=== PATIENT | female | born 1990 | race Native Hawaiian/Other Pacific Islander ===

== ENCOUNTER 2017-04-04 14:11 | Inpatient (IN) | payer OTHER ==
[~2017-04-04] VITALS: Ht 167.6 cm; Wt 104.3 kg
[~2017-04-04 14:11] MED LIST: HYDACE5 PO; METERG.2 PO
[2017-04-04] MEDS ORDERED: EXPECTA PRENAT1 EACH (15:06)
[2017-04-04 15:13] LABS: BASOPHILS ABSOLUTE AUTO 0.01 K/mm3 (0.00-0.23); BASOPHILS PERCENT AUTO 0 % (0-2); EOSINOPHILS PERCENT AUTO 0 % (0-6); Hemoglobin 13.2 g/dL (11.5-16.0); IMMATURE GRAN ABSOLUTE AUTO 0.03 K/mm3 (0.00-0.10); IMMATURE GRAN PERCENT AUTO 0 % (0-1); LYMPHOCYTES ABSOLUTE AUTO 1.91 K/mm3 (0.84-5.20); LYMPHOCYTES PERCENT AUTO 18 % (21-46); MONOCYTES ABSOLUTE AUTO 0.61 K/mm3 (0.16-1.47); MONOCYTES PERCENT AUTO 6 % (4-13); Mean Corpuscular HGB 28.1 pg (26.0-34.0); Mean Corpuscular HGB Conc 33.8 g/dL (31.5-36.5); Mean Corpuscular Volume 83 fL (80-100); Mean Platelet Volume 9.6 fL (9.1-12.4); NEUTROPHILS ABSOLUTE AUTO 8.35 K/mm3 (1.96-9.15); NEUTROPHILS PERCENT AUTO 77 % (41-73); Platelet Count 284 K/mm3 (150-400); RDW Coefficient Variation 13.7 % (11.7-14.2); RDW Standard Deviation 41.6 fL (35.1-46.3); White Blood Cell Count 10.91 K/mm3 (4.00-11.30)
[2017-04-05 05:33] LABS: Hematocrit 34.8 % (33.0-51.0); Hemoglobin 11.2 g/dL (11.5-16.0); Mean Corpuscular HGB 27.5 pg (26.0-34.0); Mean Corpuscular HGB Conc 32.2 g/dL (31.5-36.5); Mean Corpuscular Volume 86 fL (80-100); Mean Platelet Volume 9.5 fL (9.1-12.4); Platelet Count 258 K/mm3 (150-400); RDW Standard Deviation 43.4 fL (35.1-46.3); Red Blood Cell Count 4.07 M/mm3 (3.80-5.20); White Blood Cell Count 15.58 K/mm3 (4.00-11.30)
== END 2017-04-06 14:30 | disposition home or self-care (01) | DRG 775 ==
LOC: OBS 14:11 → BC 14:39
PROVIDERS: Obstetrics & Gynecology
PROC: 10E0XZZ Delivery of Products of Conception, External Approach (ICD-10-PCS; principal; 2017-04-04)
PROC: 0HQ9XZZ Repair Perineum Skin, External Approach (ICD-10-PCS; 2017-04-04)
PROC: 10907ZC Drainage of Amniotic Fluid, Therapeutic from Products of Conception, Via Natural or Artificial Opening (ICD-10-PCS; 2017-04-04)
DX: O70.0 First degree perineal laceration during delivery (principal); Z37.0 Single live birth; Z3A.40 40 weeks gestation of pregnancy
CPT/HCPCS: 36415; 51702; 81003; 85025; 85027; 90707; J1885; J2405; J2590; J3010; J7120

== ENCOUNTER → 2019-03-24 | Outpatient (CLI) | payer OTHER ==
[~2019-03-24] MED LIST changes: +EXPECTA PRENAT1 EACH
== END | disposition home or self-care (01) ==
LOC: LAB SHORT 12:50 → LAB EV 12:50
DX: N39.0 Urinary tract infection, site not specified (principal)
CPT/HCPCS: 87077; 87086; 87186

== ENCOUNTER 2019-12-25 06:38 | Day surgery (SDC) | payer OTHER ==
[~2019-12-25] VITALS: Ht 167.6 cm; Wt 66.4 kg
[~2019-12-25 06:38] MED LIST changes: +OMEP20ER PO; +ONDA4 PO; +[UNRECOGNIZED DRUG - OTHER] PO
--- NOTE | 2019-12-25 11:40 | NUR ---
Discharge instructions reviewed with patient. Patient verbalizes understanding. Copy given to patient to take home. Dressing to procedure site clean, dry, intact with no visible drainage, swelling, erythema or bruising noted. X4 insertion sites stable. Up to get self dressed and experience nausea, patient laid back down. Skin pale and BP taken with lower BP noted. Instructed to rest and will continue to monitor before discharge home. Gave RX to father to get RX filled.
--- NOTE | 2019-12-25 13:15 | NUR ---
AMUBUATED IN DEPARTMENT AND TOLERATED WELL. NO NAUSEA OR LIGHTHEADEDNESS. C/O OF LEFT REFERRED GAS PAIN. BACK TO BED WITH WARM BLANKET PLACED TO SHOULDER AREA. AWAIT FOR RIDE FOR DISCHARGE.
--- NOTE | 2019-12-25 13:53 | NUR ---
Patient up to Ambulate independently. Gait steady. Patient States Post-Procedure ride home has been arranged. Discharged via wheelchair to private car for ride home.
== END 2019-12-25 13:45 | disposition home or self-care (01) ==
LOC: ORSCMMR 06:38 → ORD 07:30 → ORSCMMR 08:15
PROVIDERS: Surgery
PROC: 0FT44ZZ Resection of Gallbladder, Percutaneous Endoscopic Approach (ICD-10-PCS; principal; 2019-12-25 08:15)
DX: K80.10 Calculus of gallbladder with chronic cholecystitis without obstruction (principal)
CPT/HCPCS: 88304; A9270-GY; C1729; J0690; J1100; J1885; J2250; J2405; J2704; J2765; J3010; J7030; J7120

== ENCOUNTER 2020-07-11 20:06 | Emergency (ER) | payer OTHER ==
[~2020-07-11] VITALS: Ht 167.6 cm; Wt 63.5 kg
[2020-07-11 20:45] LABS: BASOPHILS ABSOLUTE AUTO 0.03 K/mm3 (0.00-0.23); BASOPHILS PERCENT AUTO 0 % (0-2); EOSINOPHILS ABSOLUTE AUTO 0.01 K/mm3 (0.00-0.68); EOSINOPHILS PERCENT AUTO 0 % (0-6); Hemoglobin 14.9 g/dL (11.5-16.0); IMMATURE GRAN ABSOLUTE AUTO 0.02 K/mm3 (0.00-0.10); IMMATURE GRAN PERCENT AUTO 0 % (0-1); LYMPHOCYTES ABSOLUTE AUTO 1.83 K/mm3 (0.84-5.20); LYMPHOCYTES PERCENT AUTO 17 % (21-46); MONOCYTES ABSOLUTE AUTO 0.67 K/mm3 (0.16-1.47); MONOCYTES PERCENT AUTO 6 % (4-13); Mean Corpuscular HGB 29.4 pg (26.0-34.0); Mean Corpuscular HGB Conc 34.7 g/dL (31.5-36.5); Mean Corpuscular Volume 85 fL (80-100); Mean Platelet Volume 9.4 fL (9.1-12.4); NEUTROPHILS ABSOLUTE AUTO 8.15 K/mm3 (1.96-9.15); NEUTROPHILS PERCENT AUTO 76 % (41-73); Platelet Count 337 K/mm3 (150-400); RDW Standard Deviation 37.1 fL (35.1-46.3); Red Blood Cell Count 5.07 M/mm3 (3.80-5.20); White Blood Cell Count 10.71 K/mm3 (4.00-11.30)
[2020-07-11 21:04] LABS: Alanine Aminotransfer (ALT/SGP 18 U/L (12-78); Albumin, Blood 4.1 g/dL (3.4-5.0); Albumin/Globulin Ratio 1.1 (0.8-1.8); Alk Phos 67 U/L (50-136); Anion Gap 9 mmol/L (6-16); Aspartate Aminotrans (AST/SGOT 14 U/L (12-37); Bilirubin, Total 0.8 mg/dL (0.1-1.0); Blood Urea Nitrogen 11 mg/dL (8-24); Bun/Creatinine Ratio 15.3 (12.0-20.0); CO2, Blood 21 mmol/L (21-32); Calcium, Blood 9.3 mg/dL (8.5-10.1); Chloride, Blood 109 mmol/L (98-108); Creatinine, Blood 0.72 mg/dL (0.40-1.00); Globulin, Blood 3.8 g/dL (2.2-4.0); Glomerular Filtration Rate >60 (60-); Glucose, Blood 130 mg/dL (70-99); Potassium, Blood 3.7 mmol/L (3.5-5.5); Sodium, Blood 139 mmol/L (136-145); Total Protein, Blood 7.9 g/dL (6.4-8.2)
[2020-07-11 22:53] LABS: Source, Urine Clean Catch
[2020-07-11 22:56] LABS: Bilirubin, Urine Neg (Neg); Blood, Urine 2+ (Neg); Glucose Qualitative, Urine Neg (Neg); Ketones, Urine 4+ (Neg); Leukocyte Esterase, Urine Neg (Neg); Nitrite, Urine Neg (Neg); Protein, Urine Neg (Neg); Specific Gravity, Urine 1.015 (1.003-1.022); Urobilinogen, Urine NORM (Normal)
[2020-07-11 23:02] LABS: Appearance, Urine Clear (Clear); Color, Urine Yellow (P-Yellow)
[2020-07-11 23:03] LABS: Bacteria Few /hpf; Squamous Epithelial Cells Few /hpf (Few); White Blood Cells, Urine 0-2 /hpf (0-5)
[2020-07-12] MEDS ORDERED: ONDA4ODT MM (00:38)
== END 2020-07-12 00:55 | disposition home or self-care (01) ==
LOC: ER 20:06
PROVIDERS: Physician Assistant
DX: R10.9 Unspecified abdominal pain (principal); R11.2 Nausea with vomiting, unspecified
CPT/HCPCS: 36415; 80053; 81001; 81025; 83690; 85025; 96374; 96375; 99284-25; J2060; J2405; J7030

== ENCOUNTER 2020-07-15 11:40 | Emergency (ER) | payer OTHER ==
[~2020-07-15] VITALS: Ht 167.6 cm; Wt 63.5 kg
[~2020-07-15 11:40] MED LIST changes: +ONDA4ODT MM
[2020-07-15 12:39] LABS: BASOPHILS ABSOLUTE AUTO 0.02 K/mm3 (0.00-0.23); BASOPHILS PERCENT AUTO 0 % (0-2); EOSINOPHILS ABSOLUTE AUTO 0.02 K/mm3 (0.00-0.68); EOSINOPHILS PERCENT AUTO 0 % (0-6); Hematocrit 45.4 % (33.0-51.0); IMMATURE GRAN ABSOLUTE AUTO 0.04 K/mm3 (0.00-0.10); IMMATURE GRAN PERCENT AUTO 0 % (0-1); LYMPHOCYTES ABSOLUTE AUTO 1.56 K/mm3 (0.84-5.20); LYMPHOCYTES PERCENT AUTO 15 % (21-46); MONOCYTES ABSOLUTE AUTO 0.47 K/mm3 (0.16-1.47); MONOCYTES PERCENT AUTO 4 % (4-13); Mean Corpuscular HGB 28.9 pg (26.0-34.0); Mean Corpuscular Volume 88 fL (80-100); Mean Platelet Volume 9.4 fL (9.1-12.4); NEUTROPHILS ABSOLUTE AUTO 8.49 K/mm3 (1.96-9.15); NEUTROPHILS PERCENT AUTO 80 % (41-73); Platelet Count 333 K/mm3 (150-400); RDW Coefficient Variation 12.1 % (11.7-14.2); RDW Standard Deviation 38.9 fL (35.1-46.3); Red Blood Cell Count 5.19 M/mm3 (3.80-5.20)
[2020-07-15 12:52] LABS: Source, Urine Clean Catch
[2020-07-15 12:59] LABS: Bilirubin, Urine Neg (Neg); Blood, Urine 1+ (Neg); Glucose Qualitative, Urine Neg (Neg); Ketones, Urine 3+ (Neg); Leukocyte Esterase, Urine Neg (Neg); Nitrite, Urine Neg (Neg); Protein, Urine Neg (Neg); Urobilinogen, Urine NORM (Normal); pH, Urine 6.5 (5.0-8.0)
[2020-07-15 13:05] LABS: Alanine Aminotransfer (ALT/SGP 19 U/L (12-78); Albumin, Blood 4.3 g/dL (3.4-5.0); Albumin/Globulin Ratio 1.1 (0.8-1.8); Alk Phos 66 U/L (50-136); Anion Gap 9 mmol/L (6-16); Aspartate Aminotrans (AST/SGOT 19 U/L (12-37); Bilirubin, Total 0.8 mg/dL (0.1-1.0); Blood Urea Nitrogen 17 mg/dL (8-24); CO2, Blood 23 mmol/L (21-32); Calcium, Blood 9.3 mg/dL (8.5-10.1); Chloride, Blood 107 mmol/L (98-108); Creatinine, Blood 0.77 mg/dL (0.40-1.00); Glomerular Filtration Rate >60 (60-); Glucose, Blood 102 mg/dL (70-99); Potassium, Blood 4.1 mmol/L (3.5-5.5); Sodium, Blood 139 mmol/L (136-145); Total Protein, Blood 8.3 g/dL (6.4-8.2)
[2020-07-15 13:07] LABS: Appearance, Urine Clear (Clear); Color, Urine Yellow (P-Yellow)
[2020-07-15 13:08] LABS: Bacteria Not Seen /hpf; Red Blood Cells, Urine 0-2 /hpf (0-2); Squamous Epithelial Cells Rare /hpf (Few); White Blood Cells, Urine 0-2 /hpf (0-5)
[2020-07-15] MEDS ORDERED: Klonopin0.5 MG PO (15:54)
== END 2020-07-15 16:45 | disposition home or self-care (01) ==
LOC: ER 11:40
PROVIDERS: Emergency Medicine
DX: F41.9 Anxiety disorder, unspecified (principal); R10.84 Generalized abdominal pain
CPT/HCPCS: 36415; 74177; 80053; 81001; 81025; 83690; 85025; 96374; 96375; 99284-25; A9270; J1885; J2405; Q9967

== ENCOUNTER 2020-09-03 15:22 | Emergency (ER) | payer OTHER ==
[~2020-09-03] VITALS: Ht 167.6 cm; Wt 59.4 kg
[~2020-09-03 15:22] MED LIST changes: +DICY20 PO; +Klonopin0.5 MG PO
[2020-09-03 15:59] LABS: Source, Urine Clean Catch
[2020-09-03 16:04] LABS: BASOPHILS ABSOLUTE AUTO 0.03 K/mm3 (0.00-0.23); BASOPHILS PERCENT AUTO 0 % (0-2); EOSINOPHILS ABSOLUTE AUTO 0.02 K/mm3 (0.00-0.68); EOSINOPHILS PERCENT AUTO 0 % (0-6); Hematocrit 44.9 % (33.0-51.0); Hemoglobin 15.2 g/dL (11.5-16.0); IMMATURE GRAN ABSOLUTE AUTO 0.03 K/mm3 (0.00-0.10); IMMATURE GRAN PERCENT AUTO 0 % (0-1); LYMPHOCYTES ABSOLUTE AUTO 2.44 K/mm3 (0.84-5.20); LYMPHOCYTES PERCENT AUTO 31 % (21-46); MONOCYTES ABSOLUTE AUTO 0.63 K/mm3 (0.16-1.47); MONOCYTES PERCENT AUTO 8 % (4-13); Mean Corpuscular HGB 29.3 pg (26.0-34.0); Mean Corpuscular HGB Conc 33.9 g/dL (31.5-36.5); Mean Corpuscular Volume 87 fL (80-100); Mean Platelet Volume 9.7 fL (9.1-12.4); NEUTROPHILS PERCENT AUTO 60 % (41-73); Platelet Count 327 K/mm3 (150-400); RDW Coefficient Variation 12.9 % (11.7-14.2); RDW Standard Deviation 40.4 fL (35.1-46.3); Red Blood Cell Count 5.19 M/mm3 (3.80-5.20); White Blood Cell Count 7.95 K/mm3 (4.00-11.30)
[2020-09-03 16:14] LABS: Appearance, Urine Clear (Clear); Bilirubin, Urine Neg (Neg); Blood, Urine 2+ (Neg); Color, Urine Yellow (P-Yellow); Glucose Qualitative, Urine Neg (Neg); Ketones, Urine 3+ (Neg); Leukocyte Esterase, Urine 1+ (Neg); Nitrite, Urine Neg (Neg); Protein, Urine Neg (Neg); Urobilinogen, Urine NORM (Normal)
[2020-09-03 16:32] LABS: Alanine Aminotransfer (ALT/SGP 31 U/L (12-78); Albumin, Blood 4.1 g/dL (3.4-5.0); Albumin/Globulin Ratio 1.1 (0.8-1.8); Alk Phos 71 U/L (50-136); Anion Gap 8 mmol/L (6-16); Aspartate Aminotrans (AST/SGOT 12 U/L (12-37); Bilirubin, Total 1.1 mg/dL (0.1-1.0); Blood Urea Nitrogen 11 mg/dL (8-24); Bun/Creatinine Ratio 14.2 (12.0-20.0); CO2, Blood 23 mmol/L (21-32); Calcium, Blood 9.6 mg/dL (8.5-10.1); Chloride, Blood 107 mmol/L (98-108); Creatinine, Blood 0.78 mg/dL (0.40-1.00); Globulin, Blood 3.9 g/dL (2.2-4.0); Glomerular Filtration Rate >60 (60-); Glucose, Blood 87 mg/dL (70-99); Potassium, Blood 3.8 mmol/L (3.5-5.5); Sodium, Blood 138 mmol/L (136-145)
[2020-09-03 16:44] LABS: Bacteria Few /hpf; Squamous Epithelial Cells Few /hpf (Few); White Blood Cells, Urine 0-2 /hpf (0-5)
[2020-09-03] MEDS ORDERED: MECL12.5 PO (18:28)
[2020-09-03] MEDS ORDERED: ONDA4ODT SL (18:28)
== END 2020-09-03 18:52 | disposition home or self-care (01) ==
LOC: ER 15:22
PROVIDERS: Physician Assistant
DX: R42 Dizziness and giddiness (principal); Z79.899 Other long term (current) drug therapy
CPT/HCPCS: 36415; 80053; 81001; 81025; 83690; 85025; 87086; 96374; 99284-25; A9270; J2765; J7120

== ENCOUNTER → 2021-10-21 | Outpatient (CLI) | payer OTHER ==
[~2021-10-21] MED LIST changes: +MECL12.5 PO; +ONDA4ODT SL
[2021-10-23 15:07] LABS: HPV 16 Negative (Negative); HPV 18 Negative (Negative); HPV OTHER HR TYPES Negative (Negative)
== END | disposition home or self-care (01) ==
LOC: LAB 15:59 → LAB SHORT 15:59
PROVIDERS: Obstetrics & Gynecology
DX: Z01.419 Encounter for gynecological examination (general) (routine) without abnormal findings (principal)
CPT/HCPCS: 87624; G0123

== ENCOUNTER → 2023-01-24 | Outpatient (CLI) | payer OTHER | END | disposition home or self-care (01) | LOC: LAB SHORT 10:54 → LAB 10:54 | DX: N39.0 Urinary tract infection, site not specified (principal) | CPT/HCPCS: 87077; 87086; 87186 ==

== ENCOUNTER → 2023-10-24 | Outpatient (CLI) | payer OTHER ==
[2023-10-24 15:35] LABS: Source, Urine Clean Catch
[2023-10-24 17:07] LABS: Appearance, Urine Hazy (Clear); Bilirubin, Urine Neg (Neg); Blood, Urine Neg (Neg); Color, Urine Yellow (P-Yellow); Glucose Qualitative, Urine Neg (Neg); Ketones, Urine Neg (Neg); Leukocyte Esterase, Urine Neg (Neg); Nitrite, Urine Pos (Neg); Protein, Urine 1+ (Neg); Urobilinogen, Urine NORM (Normal); pH, Urine 6.5 (5.0-8.0)
[2023-10-24 18:37] LABS: Bacteria Many /hpf; Mucus Light (0-Heavy); Red Blood Cells, Urine 0-2 /hpf (0-2); Squamous Epithelial Cells Few /hpf (Few)
[2023-10-24 18:38] LABS: Amorphous Light (0-Heavy)
== END | disposition home or self-care (01) ==
LOC: LAB 14:19 → LAB SHORT 14:19
PROVIDERS: Obstetrics & Gynecology
DX: O99.343 Other mental disorders complicating pregnancy, third trimester (principal); R82.90 Unspecified abnormal findings in urine
CPT/HCPCS: 81001; 87081; 87150

== ENCOUNTER 2023-11-14 06:57 | Inpatient (IN) | payer OTHER ==
[2023-11-14] VITALS (40 sets, daily range): BP systolic 95–131; BP diastolic 52–73
[~2023-11-14] VITALS: Ht 167.6 cm; Wt 89.0 kg
[2023-11-14] MEDS ORDERED: Lactated Ringer's 1,000 ML IV SCH ×3 (07:20→18:50)
[2023-11-14] MEDS ORDERED: OXYTOCIN/RINGER'S LACTATE 500 ML IV SCH ×2 (07:20→18:50)
[2023-11-14] MEDS ORDERED: Misoprostol 200 MCG Tab PR PRN (07:25)
[2023-11-14] MEDS ORDERED: OXYTOCIN/RINGER'S LACTATE 500 ML IV PRN (07:25)
[2023-11-14] MEDS ORDERED: Misoprostol 200 MCG Tab BC PRN ×2 (07:25→19:00)
[2023-11-14] MEDS ORDERED: Lactated Ringer's 1,000 ML IV PRN (07:25)
[2023-11-14] MEDS ORDERED: Ondansetron HCl 2 MG / ML 2ML Vial IV PRN ×2 (07:25→14:25)
[2023-11-14] MEDS ORDERED: FentaNYL Citrate 50 MCG/ML 2 ML Injection IV PRN (07:25)
[2023-11-14] MEDS ORDERED: Tranexamic Acid 100 ML IV SCH (07:25)
[2023-11-14] MEDS ORDERED: Acetaminophen 500 MG Tab PO PRN ×2 (07:25→18:45)
[2023-11-14] MEDS ORDERED: Carboprost Tromethamine 250 MCG/ML 1ML Amp IM PRN ×2 (07:25→18:45)
[2023-11-14] MEDS ORDERED: ePHEDrine Sulfate 50 MG/ML 1ML Injection XX PRN (07:25)
[2023-11-14] MEDS ORDERED: FentaNYL 2mcg/ml-Bup 0.1% Epd 250 ML EPI PRN (07:25)
[2023-11-14] MEDS ORDERED: Methylergonovine Maleate 0.2MG / ML 1ML Amp IM PRN ×2 (07:25→18:50)
[2023-11-14] MEDS ORDERED: Calcium Carbonate 500 MG Tab Chew PO SCH (07:25)
[2023-11-14] MEDS ORDERED: Oxytocin 10 Unit / ML Vial IM PRN (07:25)
[2023-11-14 07:30] LABS: BASOPHILS ABSOLUTE AUTO 0.03 K/mm3 (0.00-0.23); BASOPHILS PERCENT AUTO 0 % (0-2); EOSINOPHILS ABSOLUTE AUTO 0.04 K/mm3 (0.00-0.68); EOSINOPHILS PERCENT AUTO 1 % (0-6); Hematocrit 38.8 % (33.0-51.0); Hemoglobin 12.7 g/dL (11.5-16.0); IMMATURE GRAN ABSOLUTE AUTO 0.04 K/mm3 (0.00-0.10); IMMATURE GRAN PERCENT AUTO 1 % (0-1); LYMPHOCYTES ABSOLUTE AUTO 2.37 K/mm3 (0.84-5.20); LYMPHOCYTES PERCENT AUTO 29 % (21-46); MONOCYTES ABSOLUTE AUTO 0.61 K/mm3 (0.16-1.47); MONOCYTES PERCENT AUTO 8 % (4-13); Mean Corpuscular HGB 28.6 pg (26.0-34.0); Mean Corpuscular HGB Conc 32.7 g/dL (31.5-36.5); Mean Corpuscular Volume 87 fL (80-100); Mean Platelet Volume 9.2 fL (9.1-12.4); NEUTROPHILS ABSOLUTE AUTO 4.99 K/mm3 (1.96-9.15); NEUTROPHILS PERCENT AUTO 62 % (41-73); Platelet Count 220 K/mm3 (150-400); RDW Coefficient Variation 13.7 % (11.7-14.2); RDW Standard Deviation 43.4 fL (35.1-46.3); Red Blood Cell Count 4.44 M/mm3 (3.80-5.20); White Blood Cell Count 8.08 K/mm3 (4.00-11.30)
[2023-11-14] MEDS ORDERED: PRENATAL TABLE1 EAC2 PO (07:38)
[2023-11-14] MEDS ORDERED: ePHEDrine Sulfate 50 MG/ML 1ML Injection IV PRN (14:25)
[2023-11-14] MEDS ORDERED: DiphenhydrAMINE HCl 50 MG/ML 1ML Vial IV PRN (14:25)
[2023-11-14] MEDS ORDERED: Naloxone HCl 0.4MG / ML 1ML Vial IV PRN (14:25)
[2023-11-14] MEDS ORDERED: Benzocaine Topical Anesthetic Spray 60GM TOP PRN (18:45)
[2023-11-14] MEDS ORDERED: Witch Hazel/Glycerin PADS TOP PRN (18:45)
[2023-11-14] MEDS ORDERED: Docusate Sodium 100 MG Cap PO PRN (18:45)
[2023-11-14] MEDS ORDERED: Ketorolac Tromethamine 30mg Vial IV PRN (18:45)
[2023-11-14] MEDS ORDERED: Lanolin Cream TOP PRN (18:50)
[2023-11-14] MEDS ORDERED: Ibuprofen 400 MG Tab PO PRN (18:50)
[2023-11-15 01:30] VITALS: BP 102/51
[2023-11-15 04:09] VITALS: BP 104/58
[2023-11-15 08:10] VITALS: BP 98/56
[2023-11-15 08:12] VITALS: BP 98/62
[2023-11-15] MEDS ORDERED: Citalopram Hydrobromide 20 MG Tab PO SCH (09:00)
[2023-11-15] MEDS ORDERED: Prenatal Vit/FE Fumarate/FA 1 Tab PO SCH (09:00)
[2023-11-15 13:17] VITALS: BP 109/69
[2023-11-15 16:33] VITALS: BP 122/71
[2023-11-15] MEDS ORDERED: IBUP800 PO (17:44)
--- NOTE | 2023-11-15 17:46 | NUR ---
agree with above assessment
--- NOTE | 2023-11-15 18:08 | NUR ---
dc to boarder status, dc instructions went over with pt, verbalized understaning, has ppfu appt for 8-
== END 2023-11-15 18:10 | disposition home or self-care (01) | DRG 807 ==
LOC: OBS 06:57 → BC 07:14
PROVIDERS: ADMIT Obstetrics & Gynecology
PROC: 10E0XZZ Delivery of Products of Conception, External Approach (ICD-10-PCS; principal; 2023-11-14)
PROC: 3E0R3BZ Introduction of Anesthetic Agent into Spinal Canal, Percutaneous Approach (ICD-10-PCS; 2023-11-14)
PROC: 00HU33Z Insertion of Infusion Device into Spinal Canal, Percutaneous Approach (ICD-10-PCS; 2023-11-14)
PROC: 10907ZC Drainage of Amniotic Fluid, Therapeutic from Products of Conception, Via Natural or Artificial Opening (ICD-10-PCS; 2023-11-14)
DX: O99.344 Other mental disorders complicating childbirth (principal); Z37.0 Single live birth; F41.9 Anxiety disorder, unspecified; O69.81X0 Labor and delivery complicated by cord around neck, without compression, not applicable or unspecified; Z3A.39 39 weeks gestation of pregnancy; O71.82 Other specified trauma to perineum and vulva
CPT/HCPCS: 51702; 59025; 85025; 86850; 86900; 86901; A9270; J1885; J2590; J3010; J7120